=== PATIENT | male | born 1995 | race Caucasian/White ===

== ENCOUNTER 2024-04-15 17:46 | Emergency (ER) | payer OTHER, MEDICAID, SELFPAY ==
[2024-04-15] VITALS (24 sets, daily range): BP systolic 128–168; BP diastolic 73–140; PULSE 59–94; RESP 12–20; TEMP 37.1; O2SAT 98–100; BMI 21.2
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
[2024-04-15] MEDS: ONDANSETRON 2 MG/ML inj 4 MG IVP (18:36)
[2024-04-15] MEDS: HYDROmorphone 0.5 mg/0.5 ml inj IVP ×2 (18:36→19:48)
[2024-04-15 19:05] LABS: Basophils Percent Auto 0.1 % (0.0-3.0); Eosinophils Percent Auto 0.1 % (0.0-7.0); Hematocrit 45.1 % (37.0-53.0); Hemoglobin* 15.3 gm/dL (13.5-17.5); Immature Granulocytes Pct Auto 0.2 %; Lymphocytes Percent Auto 21.7 % (20-44); Mean Corpuscular HGB Conc 34 gm/dL (32-36); Mean Corpuscular Hemoglobin 30 pg (26-34); Mean Corpuscular Volume 89 fL (80-100); Monocytes Percent Auto 7.5 % (0.0-11.0); Neutrophils Percent Auto 70.4 % (42.0-72.0); Platelet Count* 307 K/uL (140-440); RDW Coefficient of Variation % 12.3 % (11.5-15.5); Red Blood Count 5.09 m/uL (4.30-5.90); Slide Review Reflex No
[2024-04-15 19:27] LABS: Albumin* 5.1 g/dL (3.3-5.0); Chloride* 106 mmol/L (96-114); INR 1.07 (0.91-1.10); Potassium* 3.5 mmol/L (3.6-5.1); Prothrombin Time 14.6 Seconds; Sodium* 139 mmol/L (135-149)
[2024-04-15 19:29] LABS: Anion Gap 13 mEq/L (7-15); Aspartate Amino Transferase* 25 U/L (12-35); Bilirubin Total* 0.8 mg/dL (0.1-1.5); Carbon Dioxide* 20 mmol/L (20-32); Creatinine* 0.8 mg/dL (0.5-1.5); Estimated Glomerular Filt Rate 124 ml/min
[2024-04-15 19:30] LABS: Alanine Aminotransferase* 19 U/L (4-50); Alkaline Phosphatase* 98 U/L (40-150); Blood Urea Nitrogen* 12 mg/dL (5-24); Calcium* 9.9 mg/dL (8.4-10.6); Glucose* 96 mg/dL (60-115)
[2024-04-15] MEDS: HYDROCODONE-ACETAMIN 5-325 MG 1 TAB PO (21:19)
== END 2024-04-15 21:42 | disposition home or self-care (01) ==
PROVIDERS: Emergency Provider Emergency Medicine; PCP Emergency Medicine; Visit Provider Emergency Medicine
DX: S06.0X0A Concussion without loss of consciousness, initial encounter (principal); M54.2 Cervicalgia; M54.50 Low back pain, unspecified; R07.81 Pleurodynia; V43.52XA Car driver injured in collision with other type car in traffic accident, initial encounter
CPT/HCPCS: 36415; 70450; 71260; 72125; 72128; 72131; 74177; 80053; 85025; 85610; 86850; 86900; 86901; 96374; 96375; 99284; 99291; A9270; J1171; J2405; Q9967